=== PATIENT | male | born 1990 | race Two or more races ===

== ENCOUNTER 2020-07-02 01:34 | Emergency (ER) | payer OTHER ==
[~2020-07-02] VITALS: Ht 175.3 cm; Wt 72.6 kg
--- NOTE | 2020-07-02 01:40 | NUR ---
PT JEFF FROM [facility] C/O "FLUCTUATING BLOOD PRESSURE READINGS". ON ARRIVAL, PT DENIES CP, SOB, HEADACHE, DIZZINESS. PT AAOX4. VITAL SIGNS STABLE. RESPIRATIONS EVEN AND UNLABORED. NO ACUTE DISTRESS NOTED AT THIS TIME. PLACED ON MONITOR. [employer] AT BEDSIDE. WILL CONTINUE TO MONITOR
--- NOTE | 2020-07-02 01:55 | NUR ---
[employer] AT BEDSIDE FOR BLOOD DRAW
[2020-07-02] MEDS ORDERED: IV NS 0.9% 1,000 ML BAG IV ONE (02:00)
[2020-07-02 02:05] LABS: BASOPHILS % (AUTO) 0.4 % (0.0-2.0); EOSINOPHILS % (AUTO) 1.7 % (0.0-6.0); HEMATOCRIT 29 % (39-51); HEMOGLOBIN 9.3 g/dL (13.5-17.5); LYMPHOCYTES # (AUTO) 1.9 /CMM (0.8-4.8); LYMPHOCYTES % (AUTO) 27.5 % (20.0-44.0); MEAN CORPUSCULAR HGB CONC 32 g/dl (31.0-36.0); MEAN CORPUSCULAR VOLUME 84 fL (80-96); MONOCYTES # (AUTO) 0.7 /CMM (0.1-1.30); MONOCYTES % (AUTO) 10.3 % (2.0-12.0); NEUTROPHILS # (AUTO) 4.2 /CMM (1.8-8.9); NEUTROPHILS % (AUTO) 60.1 % (43.0-81.0); PLATELET COUNT (AUTO) 270 /CMM (150-450); RED BLOOD CELL COUNT(AUTO) 3.43 MIL/uL (4.5-6.0)
--- NOTE | 2020-07-02 02:05 | NUR ---
PT UNABLE TO PROVIDE URINE SAMPLE AT THIS TIME. MD [place]
[2020-07-02 02:21] LABS: ALBUMIN 2.8 g/dL (3.4-5.0); BILIRUBIN,DIRECT 0.1 mg/dL (0.0-0.2); BILIRUBIN,TOTAL 0.2 mg/dL (0.2-1.0); CREATININE 0.6 mg/dL (0.6-1.3); POTASSIUM 4.1 mmol/L (3.5-5.1); TOTAL PROTEIN, SERUM 7.3 g/dL (6.4-8.2)
--- NOTE | 2020-07-02 03:33 | NUR ---
PT MEDICALLY CLEARED FOR BOOKING. PT LEFT IN CUSTODY WITH [employer]. Patient discharged to home in stable condition. Written and verbal after care instructions given. Patient verbalizes understanding of instruction.IV removed. Catheter intact and site benign. Pressure and 4x4 applied to site. No bleeding noted.Pt ambulatory with a steady gait.
[2020-07-02 03:34] VITALS: BP 135/79
== END 2020-07-02 03:35 ==
LOC: ER 01:37
DX: Z00.8 Encounter for other general examination (principal); R94.31 Abnormal electrocardiogram [ECG] [EKG]; E11.9 Type 2 diabetes mellitus without complications
CPT/HCPCS: 36415; 80048; 80076; 82962; 85025; 93005; 96360; 99285; J7030